=== PATIENT | male | born 1975 | race Caucasian/White ===

== ENCOUNTER 2016-09-13 16:50 | Emergency (ER) | payer BC, OTHER ==
--- NOTE | 2016-09-13 17:19 | EDM.PDOC ---
ED HPI GENERAL MEDICAL PROBLEM - General Chief Complaint: General Stated Complaint: PT HAS PAIN ON RT SIDE OF JAW Time Seen by Provider: 09/13/16 17:00 Source of Information: Reports: Patient History Limitations: Reports: No limitations - History of Present Illness INITIAL COMMENTS - FREE TEXT/NARRATIVE: History of present illness: [41-year-old male presenting with acute left-sided cheek pain. Patient indicates pain is more intraoral then in the actual jaw. And it was acute onset Sunday and has gotten increasingly worse.] Review of systems: As per history of present illness and below otherwise all systems reviewed and negative. Past medical history: As per history of present illness and as reviewed below otherwise noncontributory. Surgical history: As per history of present illness and as reviewed below otherwise noncontributory. Social history: No reported history of drug or alcohol abuse. Family history: As per history of present illness and as reviewed below otherwise noncontributory. Physical exam: HEENT: Atraumatic, normocephalic, pupils reactive, negative for conjunctival pallor or scleral icterus, mucous membranes moist, slight amount of bulging noted to bilateral TMs maintaining healthy pink coloring with good light reflex , throat clear, neck supple, nontender, trachea midline. Lungs: Clear to auscultation, breath sounds equal bilaterally, chest nontender. Heart: S1S2, regular, negative for clicks, rubs, or JVD. Abdomen: Soft, nondistended, nontender. Negative for masses or hepatosplenomegaly. Negative for costovertebral tenderness. Pelvis: Stable nontender. Genitourinary: Deferred. Rectal: Deferred. Extremities: Atraumatic, negative for cords or calf pain. Neurovascular unremarkable. Neuro: Awake, alert, oriented. Cranial nerves II through XII unremarkable. Cerebellum unremarkable. Motor and sensory unremarkable throughout. Exam nonfocal. Intraoral examination indicates point tenderness to 17-19 region at the gumline as well as pressure to the crown of the tooth. Then noted to be slightly spongy otherwise excellent oral hygiene and dentition noted. Patient indicates he has never had wisdom teeth extracted. Diagnostics: [] Therapeutics: [] Impression: [Dental abscess] Plan: [Antibiotics brief run of pain medicine] Definitive disposition and diagnosis as appropriate pending reevaluation and review of above. left side of face Pain Score (Numeric/FACES): 7 - Related Data Allergies Allergy/AdvReac Type Severity Reaction Status Date / Time No Known Allergies Allergy Verified 09/13/16 17:04 Home Meds: Home Meds . [No Known Home Meds] 09/13/16 [History] Past Medical History - Past Health History Medical/Surgical History: Denies Medical/Surgical History Social & Family History - Family History Family Medical History: Noncontributory - Tobacco Use Smoking Status *Q: Never Smoker - Recreational Drug Use Recreational Drug Use: No ED ROS GENERAL - Review of Systems Review Of Systems: See Below (History of present illness) ED EXAM, GENERAL - Physical Exam Exam: See Below (See history of present illness) Course - Vital Signs Last Recorded V/S: Last Vital Signs Temp 36.0 C 09/13/16 17:02 Pulse 96 09/13/16 17:02 Resp 18 09/13/16 17:02 BP 140/87 09/13/16 17:02 Pulse Ox 99 09/13/16 17:02 Departure - Departure Time of Disposition: 17:17 Disposition: Home, Self-Care 01 Condition: good Clinical Impression: Dental abscess Additional Instructions: The following information is given to patients seen in the emergency department who are being discharged to home. This information is to outline your options for follow-up care. We provide all patients seen in our emergency department with a follow-up referral. The need for follow-up, as well as the timing and circumstances, are variable depending upon the specifics of your emergency department visit. If you don't have a primary care physician on staff, we will provide you with a referral. We always advise you to contact your personal physician following an emergency department visit to inform them of the circumstance of the visit and for follow-up with them and/or the need for any referrals to a consulting specialist. The emergency department will also refer you to a specialist when appropriate. This referral assures that you have the opportunity for follow-up care with a specialist. All of these measure are taken in an effort to provide you with optimal care, which includes your follow-up. Under all circumstances we always encourage you to contact your private physician who remains a resource for coordinating your care. When calling for follow-up care, please make the office aware that this follow-up is from your recent emergency room visit. If for any reason you are refused follow-up, please contact the [facility] Emergency Department at and asked to speak to the emergency department charge nurse. Take Medication as directed Followup with primary care provider soon as possible this is inclusive of a dentist Return to ED as needed as discussed
[2016-09-13 17:38] VITALS: BP 145/87
== END 2016-09-13 17:48 | disposition home or self-care (01) ==
LOC: MW.ED 16:50
DX: K04.7 Periapical abscess without sinus (principal)
CPT/HCPCS: 99283